=== PATIENT | male | born 1950 | race Caucasian/White ===

== ENCOUNTER 2017-09-22 11:47 | Emergency (ER) | payer OTHER, MEDICARE ==
[~2017-09-22] VITALS: Wt 86.2 kg
[~2017-09-22 11:47] MED LIST: ASPIRIN81 M1 PO; CLOZAPINE100 MG PO; CLOZAPINE25 MG PO; DIVALPROEX SOD500 M1 PO; DOXINATE PO; HALDOL5 MG PO; KETOCONAZOLE; OMEPRAZOLE MAGN20 M1 PO; TAMSULOSIN HYD0.4 MG PO
[2017-09-22] MEDS ORDERED: CLOZAPINE200 MG PO (11:53)
[2017-09-22] MEDS ORDERED: CLOZAPINE100 MG PO (11:54)
[2017-09-22] MEDS ORDERED: COLACE CLEAR50 MG PO (11:54)
[2017-09-22] MEDS ORDERED: LEVETIRACETAM500 MG PO (11:55)
[2017-09-22] MEDS ORDERED: LITHIUM CARB300 MG PO (11:55)
[2017-09-22] MEDS ORDERED: PROLIXIN10 MG PO (11:55)
[2017-09-22] MEDS ORDERED: LORAZEPAM1 MG PO (11:56)
[2017-09-22] MEDS ORDERED: LORAZEPAM0.5 MG PO (11:56)
[2017-09-22] MEDS ORDERED: VITAMIN D31000 UNI1 PO (11:57)
[2017-09-22] MEDS ORDERED: OMEPRAZOLE20 M2 PO (11:57)
[2017-09-22] MEDS ORDERED: MELATONIN3 MG PO (11:57)
[2017-09-22 12:13] LABS: BASO # 0.1 10*3/uL (0.0-0.1); BASO % 0.5 % (0.0-1.0); HEMATOCRIT 37.4 % (42.0-52.0); LYMPH # 1.6 10*3/uL (1.3-4.4); LYMPH % 12.2 % (27.0-41.0); MEAN CELL VOLUME 98.4 fl (80.0-94.0); MEAN CORPUSCULAR HGB 31.6 pg (27.0-31.0); MEAN CORPUSCULAR HGB CONC 32.1 g/dl (33.0-37.0); MONO # 0.8 10*3/uL (0.1-1.0); NEUT # 10.9 10*3/uL (2.3-7.9); PLATELET COUNT AUTOMATED 230 10*3/uL (130-400); RED CELL DISTRI WIDTH 14.8 % (0-14.5); WHITE BLOOD COUNT 13.4 10*3/uL (4.8-10.8)
[2017-09-22 12:29] LABS: ALBUMIN 3.2 gm/dl (3.1-4.5); ALKALINE PHOSPHATASE 116 U/L (45-117); BUN 17 mg/dl (7-24); CHLORIDE 107 mmol/L (98-107); CREATININE 1.21 mg/dL (0.70-1.30); LIPASE 123 U/L (73-393); POTASSIUM 4.4 mmol/L (3.5-5.1); SGOT/AST 17 IU/L (3-35); SGPT/ALT 17 U/L (12-78); SODIUM 141 mmol/L (136-145); TOTAL PROTEIN 7.1 gm/dL (6.4-8.2)
[2017-09-22 12:31] LABS: TROPONIN I < 0.015 ng/ml (<0.045)
[2017-09-22 12:34] LABS: BILIRUBIN NEGATIVE (NEGATIVE); BLOOD NEGATIVE (NEGATIVE); CLARITY SL CLOUDY (CLEAR); COLOR YELLOW (YELLOW); GLUCOSE NEGATIVE (NEGATIVE); KETONE NEGATIVE (NEGATIVE); LEUKO ESTERASE NEGATIVE (NEGATIVE); NITRITE NEGATIVE (NEGATIVE); PH 6.5 (5.0-9.0)
[2017-09-22 12:53] LABS: BACTERIA TRACE
== END 2017-09-22 13:33 | disposition home or self-care (01) ==
LOC: ED 11:47
PROVIDERS: Emergency Medicine
DX: R10.9 Unspecified abdominal pain (principal); Z88.0 Allergy status to penicillin; Z79.899 Other long term (current) drug therapy